=== PATIENT | female | born 1960 | race Caucasian/White ===

== ENCOUNTER 2025-05-29 12:30 | Emergency (ER) | payer MEDICARE, OTHER ==
[~2025-05-29] VITALS: Ht 165.1 cm; Wt 75.0 kg
[2025-05-29 12:44] VITALS: TEMP 36.9; O2SAT 100
[2025-05-29] MEDS: ACETAMINOPHEN 325MG TABLET PO ONE (14:04)
[2025-05-29] MEDS: LIDOCAINE 5% PATCH TOP SCH (14:22)
[2025-05-29] MEDS ORDERED: ACET-2708 MT (15:28)
[2025-05-29] MEDS ORDERED: LIDO-53 TP (15:28)
[2025-05-29 15:44] VITALS: BP 125/77; PULSE 68; RESP 14; O2SAT 100
== END 2025-05-29 15:46 | disposition home or self-care (01) ==
LOC: ER 13:17
DX: S01.01XA Laceration without foreign body of scalp, initial encounter (principal); S09.90XA Unspecified injury of head, initial encounter; M54.50 Low back pain, unspecified; I10 Essential (primary) hypertension; E11.9 Type 2 diabetes mellitus without complications; Z88.2 Allergy status to sulfonamides; W01.198A Fall on same level from slipping, tripping and stumbling with subsequent striking against other object, initial encounter; Y93.89 Activity, other specified; Y92.89 Other specified places as the place of occurrence of the external cause; Y99.8 Other external cause status
CPT/HCPCS: 72131; 99284